=== PATIENT | male | born 1945 | race Caucasian/White ===

== ENCOUNTER 2017-07-27 04:50 | Inpatient (IN) | payer MEDICARE, SELFPAY ==
--- NOTE | 2017-07-25 09:37 | RAD_ITS ---
STUDY: X-RAY CHEST REASON FOR EXAM: Male, 72 years old. Preoperative evaluation. TECHNIQUE: Frontal and lateral views of the chest. COMPARISON: None. FINDINGS: The lungs are hyperexpanded. There is no demonstrated pleural abnormality. Normal size heart. Normal mediastinum and [place]. Normal visualized pulmonary arteries. Normal visualized aortic arch and descending thoracic aorta. There are diffuse degenerative changes of the visualized thoracic spine. Normal visualized ribs, clavicles, and shoulders. There is no demonstrated abnormality of the visualized soft tissue structures of the upper abdomen. RAD/Chest PA and Lateral IMPRESSION: Mild hyperexpansion. No acute pathology. Electronically Signed: Eben Mendez MD at 10:39 EST , Service support ,
[2017-07-25 10:05] LABS: Hematocrit 46.2 % (40-54); Hemoglobin 15.4 g/dl (13.0-16.5); Mean Corp Hgb Conc 33.3 g/gl (32-36); Mean Corpuscular Hgb 31.8 pg (27.0-32.0); Mean Corpuscular Volume 95.3 fL (80-94); Mean Platelet Vol. 10.9 fl (6.2-12.0); Platelet Count 261 K/mm3 (150-450); RBC Distribution Width CV 12.5 % (11.6-14.6); RBC Distribution Width SD 43.3 fl (35.1-43.9); Red Blood Count 4.85 M/mm3 (4.6-6.2); Scan Indicated on CBC? Y/N NO; White Blood Count 8.9 K/mm3 (4.4-11.0)
[2017-07-25 10:09] LABS: International Normalized Ratio 0.9; Prothrombin Time (Protime)PT. 12.2 SECONDS (11.7-14.9)
[2017-07-25 10:10] LABS: Partial Thromboplast Time 27.9 Seconds (24.1-36.2)
[2017-07-25 10:26] LABS: AST(SGOT) 22 U/L (15-37); Alanine Aminotransfer ALT/SGPT 26 U/L (16-61); Albumin, Serum 3.9 g/dL (3.2-5.0); Alkaline Phosphatase 88 U/L (45-117); Anion Gap 7 (5-15); BUN 13 mg/dL (7-18); BUN/Creat Ratio 10.3 RATIO (10-20); Bilirubin, Direct 0.06 mg/dL (0.00-0.30); Calcium,Total 8.6 mg/dL (8.5-10.1); Chloride 104 mmol/L (98-107); Creatinine, Serum 1.26 mg/dL (0.70-1.30); EST Glomerular Filtration Rate 60 mL/min (>60); Est Glom Filt Rate - Afr Amer 73 mL/min (>60); Globulin 3.3 g/dL (2.2-4.2); Glucose 101 mg/dL (70-110); Magnesium 2.1 mg/dL (1.6-2.6); Phosphorus 2.8 mg/dL (2.5-4.9); Potassium 4.5 mmol/L (3.5-5.1); Protein, Total 7.2 g/dL (6.4-8.2); Sodium Level 139 mmol/L (136-145)
[2017-07-27] VITALS (32 sets, daily range): BP systolic 98–150; BP diastolic 53–86; PULSE 54–121; RESP 12–23; TEMP 36.3–36.9; O2SAT 56–100; BMI 32.0
[2017-07-27] MEDS: LORazepam 2 MG/ML Syringe IV (06:15)
--- NOTE | 2017-07-27 06:59 | PCM.OPRPT ---
Problem List (1) AAA (abdominal aortic aneurysm) Status: Acute Qualifiers: Report of Operation Date of Procedure: 07/27/17 Pre-Operative Diagnosis: Infrarenal abdominal aortic aneurysm Post-Operative Diagnosis: Same Surgery/Procedure Performed:: Attempted left radial arterial line placement. Successful right radial arterial line placement. Infrarenal abdominal aortic stent graft repair Description of Surgical Findings:: Timeout and informed consent was obtained. In the ICU at bedside the left wrist was gently extended. Rehan test demonstrated adequate ulnar flow. Was prepped with Betadine. 1% lidocaine was used as local anesthetic. 3 times the radial artery was accessed and 3 times Seldinger wire technique failed to advance the catheter. I subsequently placed a sterile pressure dressing and aborted that side. I marcelino attention to the right hand. Again Rehan test demonstrated adequate ulnar flow. Wrist was extended prepped with Betadine 20-gauge Angiocath was inserted and this time easily advanced with Seldinger technique. It was secured to skin with interrupted 3-0 silk. OpSite dressing followed by Usama wrap was applied. To facilitate monitoring a arm board was placed. Good waveform was obtained. It aspirated easily. Hand was viable to completion. No apparent complication.
--- NOTE | 2017-07-27 07:02 | OP.PCM_ITS ---
Problem List (1) AAA (abdominal aortic aneurysm) Status: Acute Qualifiers: Report of Operation Date of Procedure: 07/27/17 Pre-Operative Diagnosis: Infrarenal abdominal aortic aneurysm Post-Operative Diagnosis: Same Surgery/Procedure Performed:: Attempted left radial arterial line placement. Successful right radial arterial line placement. Infrarenal abdominal aortic stent graft repair Description of Surgical Findings:: Timeout and informed consent was obtained. In the ICU at bedside the left wrist was gently extended. Rehan test demonstrated adequate ulnar flow. Was prepped with Betadine. 1% lidocaine was used as local anesthetic. 3 times the radial artery was accessed and 3 times Seldinger wire technique failed to advance the catheter. I subsequently placed a sterile pressure dressing and aborted that side. I marcelino attention to the right hand. Again Rehan test demonstrated adequate ulnar flow. Wrist was extended prepped with Betadine 20- gauge Angiocath was inserted and this time easily advanced with Seldinger technique. It was secured to skin with interrupted 3-0 silk. OpSite dressing followed by Usama wrap was applied. To facilitate monitoring a arm board was placed. Good waveform was obtained. It aspirated easily. Hand was viable to completion. No apparent complication.
[2017-07-27] MEDS: Cefazolin 2 GM in 0.9% Normal Saline 100 ML IV ×2 (07:37→13:12)
[2017-07-27] MEDS: Bupivacaine Mpf 0.5% 30 ML VIAL (07:54)
[2017-07-27 09:47] LABS: ACT Activated Clotting Time 224 sec (74-137)
[2017-07-27 09:47] LABS: ACT Activated Clotting Time 246 sec (74-137)
[2017-07-27 09:47] LABS: ACT Activated Clotting Time 252 sec (74-137)
[2017-07-27 09:47] LABS: ACT Activated Clotting Time 114 sec (74-137)
--- NOTE | 2017-07-27 09:53 | PCM.OPRPT ---
Problem List (1) AAA (abdominal aortic aneurysm) Status: Acute Qualifiers: Report of Operation Date of Procedure: 07/27/17 Pre-Operative Diagnosis: Infrarenal abdominal aortic aneurysm Post-Operative Diagnosis: Same Surgery/Procedure Performed:: Attempted left radial arterial line placement. Successful right radial arterial line placement. Infrarenal abdominal aortic stent graft repair Description of Surgical Findings:: Timeout and informed consent was obtained. In the ICU at bedside the left wrist was gently extended. Rehan test demonstrated adequate ulnar flow. Was prepped with Betadine. 1% lidocaine was used as local anesthetic. 3 times the radial artery was accessed and 3 times Seldinger wire technique failed to advance the catheter. I subsequently placed a sterile pressure dressing and aborted that side. I marcelino attention to the right hand. Again Rehan test demonstrated adequate ulnar flow. Wrist was extended prepped with Betadine 20-gauge Angiocath was inserted and this time easily advanced with Seldinger technique. It was secured to skin with interrupted 3-0 silk. OpSite dressing followed by Usama wrap was applied. To facilitate monitoring a arm board was placed. Good waveform was obtained. It aspirated easily. Hand was viable to completion. No apparent complication. Timeout and informed consent was obtained. The patient was taken to the operating room. Ancef 2 g are given intravenously preoperatively. He underwent monitored anesthesia care. Was sterilely prepped draped. [place]an draping was used as well. Ultrasound was used to identify bilateral common femoral arteries. 1% lidocaine mixed 50-50 with 0.5% Marcaine was used as a local anesthetic. Ultrasound was used to guide the injection. Then singlewall accessed needles were placed sequentially in the bilateral common femoral arteries. Seldinger wire advancement. 5 [place] short sheath was inserted. 035 J-wire was inserted then a Perclose device was placed at the 4 o'clock position and at the 8 to 2 o'clock position 2 Perclose as per each groin. Then up sheath to 8 [place] sheath. Actually both sides wanted leaks on the right side then further up sheath to a 12 [place] sheath and on the left to an 18 [place] sheath. At that point the patient received 11,000 units of heparin. Based upon additional ACT measurements throughout the procedure he received an additional 2000 units of heparin. Via the left lumen 035 angled Glidewire and a 5 [place] marking pen was used to gain access to the abdominal aorta superior to the renal arteries. Using Isovue contrast the rate of 15 cc a second for 25 cc of AP aortogram was obtained. This allowed for measurements of length and device selection. Selected a [place] excluder 26 x 14.5 x 18 cm main body device via the left. Tail was repositioned from the right groin into the suprarenal position. I then positioned a [place] excluder released at took a imaging picture reposition the graft 2 mm lower and re-position at that level. Completely released it down to the gait. Then using the pigtail catheter and the Glidewire I attempt to gain access to the gait. Was not successful port placed a 5 [place] Kumpe catheter utilizing that and rotational angulation I was able to get access to the gait. I spun the Kumpe catheter showing good position. Then the right groin sheath was withdrawn and retrograde flush was performed to identify the side of the hypogastric. Having achieved that an extension limb for the right was selected a 16 x 14 cm extension. It was then placed and deployed. Finally it withdrew the left groin sheath performed a retrograde view to identify the hypogastric and then finished deploying that limb on the left. Now the graft was seated in place using a 3 mm equalizer balloon. Then placed a pigtail catheter via the left groin. Using 15 cc a second 25 cc a final AP aortogram was achieved. Unstated the stent graft to be in absolutely perfect position right at the level of the renal arteries with good maintained flow into the renals. There was no evidence of any endoleak. Distal positioning also was felt to be good. Were removed and the previously placed Perclose devices were secured. Hemostasis was achieved in both groins. The patient received 30 mg of protamine as heparin reversal. The feet were inspected and noted to have palpable pulses. Submitted blood loss 200 cc. No apparent complications. Contrast used 75 cc. He was taken back to the intensive care unit sac condition is absolutely no complication. Successful stent graft repair of infrarenal abdominal aortic aneurysm Willis Downing M.D., F.A.C.S.
--- NOTE | 2017-07-27 10:01 | OP.PCM_ITS ---
Problem List (1) AAA (abdominal aortic aneurysm) Status: Acute Qualifiers: Report of Operation Date of Procedure: 07/27/17 Pre-Operative Diagnosis: Infrarenal abdominal aortic aneurysm Post-Operative Diagnosis: Same Surgery/Procedure Performed:: Attempted left radial arterial line placement. Successful right radial arterial line placement. Infrarenal abdominal aortic stent graft repair Description of Surgical Findings:: Timeout and informed consent was obtained. In the ICU at bedside the left wrist was gently extended. Rehan test demonstrated adequate ulnar flow. Was prepped with Betadine. 1% lidocaine was used as local anesthetic. 3 times the radial artery was accessed and 3 times Seldinger wire technique failed to advance the catheter. I subsequently placed a sterile pressure dressing and aborted that side. I marcelino attention to the right hand. Again Rehan test demonstrated adequate ulnar flow. Wrist was extended prepped with Betadine 20- gauge Angiocath was inserted and this time easily advanced with Seldinger technique. It was secured to skin with interrupted 3-0 silk. OpSite dressing followed by Usama wrap was applied. To facilitate monitoring a arm board was placed. Good waveform was obtained. It aspirated easily. Hand was viable to completion. No apparent complication. Timeout and informed consent was obtained. The patient was taken to the operating room. Ancef 2 g are given intravenously preoperatively. He underwent monitored anesthesia care. Was sterilely prepped draped. Ioban draping was used as well. Ultrasound was used to identify bilateral common femoral arteries. 1% lidocaine mixed 50-50 with 0.5% Marcaine was used as a local anesthetic. Ultrasound was used to guide the injection. Then singlewall accessed needles were placed sequentially in the bilateral common femoral arteries. Seldinger wire advancement. 5 [place] short sheath was inserted. 035 J-wire was inserted then a Perclose device was placed at the 4 o'clock position and at the 8 to 2 o'clock position 2 Perclose as per each groin. Then up sheath to 8 [place] sheath. Actually both sides wanted leaks on the right side then further up sheath to a 12 [place] sheath and on the left to an 18 [place] sheath. At that point the patient received 11,000 units of heparin. Based upon additional ACT measurements throughout the procedure he received an additional 2000 units of heparin. Via the left lumen 035 angled Glidewire and a 5 [place] marking pen was used to gain access to the abdominal aorta superior to the renal arteries. Using Isovue contrast the rate of 15 cc a second for 25 cc of AP aortogram was obtained. This allowed for measurements of length and device selection. Selected a [place] excluder 26 x 14.5 x 18 cm main body device via the left. Tail was repositioned from the right groin into the suprarenal position. I then positioned a [place] excluder released at took a imaging picture reposition the graft 2 mm lower and re-position at that level. Completely released it down to the gait. Then using the pigtail catheter and the Glidewire I attempt to gain access to the gait. Was not successful port placed a 5 [place] Kumpe catheter utilizing that and rotational angulation I was able to get access to the gait. I spun the Kumpe catheter showing good position. Then the right groin sheath was withdrawn and retrograde flush was performed to identify the side of the hypogastric. Having achieved that an extension limb for the right was selected a 16 x 14 cm extension. It was then placed and deployed. Finally it withdrew the left groin sheath performed a retrograde view to identify the hypogastric and then finished deploying that limb on the left. Now the graft was seated in place using a 3 mm equalizer balloon. Then placed a pigtail catheter via the left groin. Using 15 cc a second 25 cc a final AP aortogram was achieved. Unstated the stent graft to be in absolutely perfect position right at the level of the renal arteries with good maintained flow into the renals. There was no evidence of any endoleak. Distal positioning also was felt to be good. Were removed and the previously placed Perclose devices were secured. Hemostasis was achieved in both groins. The patient received 30 mg of protamine as heparin reversal. The feet were inspected and noted to have palpable pulses. Submitted blood loss 200 cc. No apparent complications. Contrast used 75 cc. He was taken back to the intensive care unit sac condition is absolutely no complication. Successful stent graft repair of infrarenal abdominal aortic aneurysm Willis Downing M.D., F.A.C.S.
--- NOTE | 2017-07-27 11:26 | CASEMGMT ---
YASMINE FELIX Assessment complete. See assessment link. Disposition Plan: Return home. Patient lives alone, in a split level house. Patient's daughter, Yaritza Gutierrez, states that she will be staying with the patient for a while upon discharge from hospital. Patient denies use of DME or oxygen at home and has never used [facility]. Patient states his daughter, Yaritza Gutierrez, is his POA. CM to continue to follow for discharge needs.
[2017-07-27 13:49] LABS: M R Staph aureus DNA By PCR Negative (Negative); Probe Check PASS; Specimen Processing Control PASS
[2017-07-27] MEDS: Metoprolol Tartrate 25 MG Tablet PO (16:59)
[2017-07-27] MEDS: LORazepam 2 MG/ML Syringe 0.5 MG IV (17:06)
[2017-07-27] MEDS: clonazePAM 0.5 MG Tablet 0.25 MG PO (18:49)
--- NOTE | 2017-07-27 19:26 | PCM.PN.BLA ---
Progress Note Excellent progress Abd: soft, pos BS Groins: supple 3+ bilateral PT Will allow clears, mobilize and remove davis
[2017-07-27] MEDS: DiphenhydrAMINE 25 MG Capsule PO (21:11)
[2017-07-28] VITALS (7 sets, daily range): BP systolic 98–125; BP diastolic 50–68; PULSE 65–91; RESP 12–20; TEMP 36.6–36.7; O2SAT 94–96
--- NOTE | 2017-07-28 02:55 | NURSING ---
Pt viewed on camera at nurse's station standing at side of bed pulling aggressively at monitoring equipment and arterial line. This RN entered room to find patient extremely agitated. He was saying I'm fucking done with this shit. Pt attempting to rip out arterial line. This RN called out for assistance from other staff. Able to deescalate situation by removing monitoring equipment. Dr. Downing updated by Bret UNDERWOOD. Order received to d/c arterial line. Line d/c'd. Pt felt more comfortable in own clothing, allowed pt to dress in personal clothing. Pt continues to be agitated. This RN remains in room for emotional support.
[2017-07-28 04:41] LABS: Absolute Lymphocyte Count 1.57 X10^3/ul (0.83-4.51); Absolute Neutrophil Count 14.6 X10^3/uL (2.0-7.7); Basophil# 0.03 X10^3/uL; Basophil% 0.2 % (0-1); Eosinophil# 0.01 X10^3/uL; Eosinophils% 0.1 % (0-5); Hematocrit 41.6 % (40-54); Hemoglobin 14.4 g/dl (13.0-16.5); Lymphocyte # 1.57 X10^3/ul (4.0); Mean Corp Hgb Conc 34.6 g/gl (32-36); Mean Corpuscular Hgb 32.3 pg (27.0-32.0); Mean Corpuscular Volume 93.3 fL (80-94); Mean Platelet Vol. 10.4 fl (6.2-12.0); Monocyte# 1.26 X10^3/uL; Monocyte% 7.2 % (0-10); Neutrophil # 14.58 X10^3/uL (2.7-7.7); Neutrophil % 83.2 % (47-70); Platelet Count 229 K/mm3 (150-450); RBC Distribution Width CV 12.1 % (11.6-14.6); RBC Distribution Width SD 40.9 fl (35.1-43.9); Red Blood Count 4.46 M/mm3 (4.6-6.2); White Blood Count 17.5 K/mm3 (4.4-11.0)
[2017-07-28 04:44] LABS: POSITIVE COUNT NO; POSITIVE DIFFERENTIAL NO; POSITIVE MORPHOLOGY NO
[2017-07-28 04:56] LABS: Anion Gap 9 (5-15); BUN 16 mg/dL (7-18); BUN/Creat Ratio 13.4 RATIO (10-20); Calcium,Total 8.9 mg/dL (8.5-10.1); Chloride 106 mmol/L (98-107); Creatinine, Serum 1.19 mg/dL (0.70-1.30); EST Glomerular Filtration Rate 64 mL/min (>60); Est Glom Filt Rate - Afr Amer 78 mL/min (>60); Estimated Creatinine Clearance 59.64 ml/min; Glucose 109 mg/dL (70-110); Sodium Level 139 mmol/L (136-145)
[2017-07-28] MEDS: Enoxaparin 40 MG/0.4 ML Syringe SC (05:00)
[2017-07-28] MEDS: Metoprolol Tartrate 25 MG Tablet PO (05:01)
[2017-07-28] MEDS: Aspirin 81 MG TAB.CHEW PO (05:01)
[2017-07-28] MEDS: Pantoprazole Sodium 20 MG Tablet PO (05:01)
--- NOTE | 2017-07-28 05:46 | NURSING ---
Spoke with daughter, updated on pt behavior. Daughter reports she'll be in within a half hour.
--- NOTE | 2017-07-28 05:49 | PCM.PN.SRG ---
Subjective: Pt agitated, kyle is out. He is dressed and pacing. No c/o pain. Some flatus. No nausea - Physical Exam Lungs: Clear to auscultation Abdomen: Bowel Sounds Present, Soft, Non Tender, - - groins clean and dry Vital Signs Temp Pulse Resp BP Pulse Ox 98.1 F 76 20 H 125/68 H 96 07/28/17 04:00 07/28/17 05:01 07/28/17 04:00 07/28/17 04:00 07/28/17 04:00 Oxygen Flow Rate 2 Oxygen Delivery Method Room Air Weight: 223 lb Body Mass Index (BMI) 32.0 Intake and Output for Last 24 Hours 07/26/17 07/27/17 07/28/17 23:59 23:59 23:59 Intake Total 823 / 823 420 / 420 Output Total 2325 / 2325 400 / 400 Balance -1502 / -1502 Laboratory Tests Past 24 Hrs 07/27/17 07/27/17 07/27/17 07:00 08:34 09:03 WBC RBC Hgb Hct MCV MCH MCHC RDW RDW Differential Plt Count MPV Immature Gran % (Auto) Neut % (Auto) Lymph % (Auto) [place] % (Auto) Eos % (Auto) Baso % (Auto) Absolute Neuts (auto) Absolute Lymphs (auto) Total Counted Activated Clotting Time 114 224 H 246 H Sodium Potassium Chloride Carbon Dioxide Anion Gap BUN Creatinine Estim Creat Clear Calc Est GFR (MDRD) Af Amer Est GFR (MDRD) Non-Af BUN/Creatinine Ratio Glucose Calcium MRSA (PCR) 07/27/17 07/27/17 07/28/17 09:27 11:15 04:30 WBC 17.5 H RBC 4.46 L Hgb 14.4 Hct 41.6 MCV 93.3 MCH 32.3 H MCHC 34.6 RDW 12.1 RDW Differential 40.9 Plt Count 229 MPV 10.4 Immature Gran % (Auto) 0.300 Neut % (Auto) 83.2 H Lymph % (Auto) 9.0 L [place] % (Auto) 7.2 Eos % (Auto) 0.1 Baso % (Auto) 0.2 Absolute Neuts (auto) 14.6 H Absolute Lymphs (auto) 1.57 Total Counted Not Reportable Activated Clotting Time 252 H Sodium Potassium Chloride Carbon Dioxide Anion Gap BUN Creatinine Estim Creat Clear Calc Est GFR (MDRD) Af Amer Est GFR (MDRD) Non-Af BUN/Creatinine Ratio Glucose Calcium MRSA (PCR) Negative 07/28/17 04:30 WBC RBC Hgb Hct MCV MCH MCHC RDW RDW Differential Plt Count MPV Immature Gran % (Auto) Neut % (Auto) Lymph % (Auto) [place] % (Auto) Eos % (Auto) Baso % (Auto) Absolute Neuts (auto) Absolute Lymphs (auto) Total Counted Activated Clotting Time Sodium 139 Potassium 4.0 Chloride 106 Carbon Dioxide 24.0 Anion Gap 9 BUN 16 Creatinine 1.19 Estim Creat Clear Calc 59.64 Est GFR (MDRD) Af Amer 78 Est GFR (MDRD) Non-Af 64 BUN/Creatinine Ratio 13.4 Glucose 109 Calcium 8.9 MRSA (PCR) Assessment/Plan Will discharge with pt doing well
--- NOTE | 2017-07-28 05:53 | DCINST_ITS ---
Discharge Diet: Light diet - advance as tolerated Discharge Activity: May not drive while taking narcotic pain medications., May Shower Lifting Restrictions: 10 pounds Additional Activity Instructions:: You may be up and walking. Please do not go on an extended walk for at least 4 days. Call your doctor if your incision/area has: Continuous Slow Oozing, Sudden Increased Bleeding, Increased Pain/ Swelling, Increased Redness, Foul Smelling Discharge Call your doctor if you observe: Fever of 101 or Higher Suture Line Care: Avoid Pulling/Pushing, Avoid Pinching/Bending Additional Dressing/Incision Instructions:: Change or remove dressing in 3 days. Leave steri-strips in place for 1 week. Additional Instructions: I do not believe that additional home going prescriptions will be needed. Please resume your routine medications. Allergies/Adverse Reactions: Allergies terbinafine [From Lamisil] Allergy (Mild, Verified 07/25/17 08:23) rash atorvastatin [From Lipitor] Adverse Reaction (Intermediate, Verified 07/25/17 08 :23) mental status change Medications to take at Discharge albuterol sulfate 90 mcg/actuation breath activated powder inhaler 1 inh INHALATION ONCE PRN 07/01/17 aspirin 81 mg tablet,delayed release 81 mg PO QDAY 07/01/17 diphenhydramine 25 mg capsule 25 mg PO QHS cap 07/01/17 metoprolol tartrate 50 mg tablet 25 mg PO BID tab 07/01/17 omeprazole magnesium 20 mg tablet,delayed release 20 mg PO DAILY 07/01/17 verapamil ER (SR) 180 mg tablet,extended release 180 mg PO QDAY 07/01/17 Clonazepam [Clonazepam Tab.Rapdis] 0.25 mg PO BID PRN 07/25/17 Primary Care Physician: Yoseph Mccormack MD [Primary Care Provider] - Please Follow Up With: Willis Downing MD - [phone] When: Call to make an appointment to be seen in about 10 days.
== END 2017-07-28 06:00 | disposition home or self-care (01) | DRG 269 ==
PROVIDERS: Admitting Provider Surgery; Family Provider Family Medicine; PCP Family Medicine; Visit Provider Surgery
PROC: 04V03DZ Restriction of Abdominal Aorta with Intraluminal Device, Percutaneous Approach (ICD-10-PCS; principal; 2017-07-27 07:00)
DX: I71.4 Abdominal aortic aneurysm, without rupture (principal); I10 Essential (primary) hypertension; Z87.891 Personal history of nicotine dependence
CPT/HCPCS: 34701; 34709; 34713; 36200; 71046; 75625; 80048; 80076; 83735; 84100; 85025; 85027; 85347; 85610; 85730; 86850; 86900; 87641; Q9967; C1725; C1760; C1769; C1894

== ENCOUNTER → 2017-08-08 08:32 | Outpatient (CLI) | payer MEDICARE, SELFPAY ==
[2017-08-08 10:55] LABS: BUN 16 mg/dL (7-18); Creatinine, Serum 1.28 mg/dL (0.70-1.30); EST Glomerular Filtration Rate 59 mL/min (>60); Glucose 97 mg/dL (74-106)
[2017-08-08 10:56] LABS: Anion Gap 8 (5-15); BUN/Creat Ratio 12.5 RATIO (10-20); Calcium,Total 9.1 mg/dL (8.5-10.1); Chloride 104 mmol/L (98-107); Est Glom Filt Rate - Afr Amer 71 mL/min (>60); Potassium 4.9 mmol/L (3.5-5.1); Sodium Level 139 mmol/L (136-145)
== END ==
PROVIDERS: Family Provider Family Medicine; PCP Family Medicine; Visit Provider Surgery
DX: I71.4 Abdominal aortic aneurysm, without rupture (principal); N28.9 Disorder of kidney and ureter, unspecified
CPT/HCPCS: 36415; 80048

== ENCOUNTER → 2018-02-01 07:15 | Outpatient (CLI) | payer MEDICARE, SELFPAY ==
--- NOTE | 2018-02-01 07:17 | CT_ITS ---
PROCEDURE: CTA OF THE ABDOMEN WITH IV CONTRAST REASON FOR EXAM: AAA follow-up, status post endovascular repair Patient oriented dose modulation technique utilized. TECHNIQUE: Axial CT angiography multi-detector data acquisition was obtained from the lung bases to the mid pelvis following intravenous administration of 100 ml of Isovue-370 contrast. Axial images and MIP images were reconstructed from the axial data set. Post-processing of the angiographic images was performed, with multiplanar reformation and 3D reconstruction. TECHNICAL QUALITY: Good COMPARISON: 07/04/2017. FINDINGS: ABDOMINAL AORTA: Infrarenal abdominal aortic aneurysm is identified measuring 6.1 x 6.6 cm (AP by transverse) and previously measured 5.3 x 5.9 cm. Aortobiiliac stent graft has been placed with the top of the stent extending to the level of the renal arteries. In the posterior aneurysm sac on axial image 74, there is a small collection of contrast (endoleak) that appears to be supplied by a left lumbar artery that is seen entering the aneurysm sac/endoleak on reconstruction image 32 of series 218. CELIAC AND SUPERIOR MESENTERIC ARTERIES: Both are widely patent INFERIOR MESENTERIC ARTERY: Does not opacify. RIGHT RENAL ARTERY(ARTERIES): Single artery which is widely patent. LEFT RENAL ARTERY(ARTERIES): Single artery which is widely patent. RIGHT COMMON ILIAC ARTERY: Atherosclerosis without significant narrowing. LEFT COMMON ILIAC ARTERY: Atherosclerosis without significant narrowing. There are mild fibrotic changes in the lung bases. There is a granuloma in the right lower lobe. The liver, spleen, pancreas and gallbladder are normal. The adrenal glands are not enlarged. The kidneys are symmetric in size, shape and contrast enhancement. Simple cysts of the left kidney is stable. Visualized small bowel and colon are unremarkable except for scattered colonic diverticular changes. The appendix is unremarkable. There are degenerative changes of the lumbar spine. CT/CTA Abdomen W/WO Contrast IMPRESSION: 1. 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 No periaortic fluid/induration. 2. Additional stable chronic changes as above. Electronically Signed: Cuong Harmon MD at 12:40 EDT , Service support ,
== END ==
PROVIDERS: Family Provider Family Medicine; PCP Family Medicine; Visit Provider Surgery
DX: I71.4 Abdominal aortic aneurysm, without rupture (principal)
CPT/HCPCS: 74175; Q9967

== ENCOUNTER → 2018-08-18 06:05 | Outpatient (CLI) | payer MEDICARE, SELFPAY ==
[2018-08-18 07:56] LABS: BUN 14 mg/dL (7-18); Creatinine, Serum 1.21 mg/dL (0.70-1.30); EST Glomerular Filtration Rate 63 mL/min (>60); Est Glom Filt Rate - Afr Amer 76 mL/min (>60)
== END ==
PROVIDERS: Family Provider Family Medicine; PCP Family Medicine
DX: T82.330A Leakage of aortic (bifurcation) graft (replacement), initial encounter (principal); I71.4 Abdominal aortic aneurysm, without rupture
CPT/HCPCS: 36415; 82565; 84520